=== PATIENT | male | born 1945 | race Caucasian/White ===

== ENCOUNTER 2017-01-03 16:41 | Emergency (ER) | payer MEDICARE ==
--- NOTE | ~2017-01-03 | CR108 ---
[facility] A Service of [facility] & [facility] RADIOLOGY TEXT RESULTS PATIENT: AMRIT SHAH LOCATION: CFTX : 45 UNIT #: [id number] AGE: [address]: Theresa Rizzo APRN SEX: M ORDER DR: [id number] [address] [facility]. [place], [place] [address] [id number] MR#: [id number] Acc #: [id number] NAME: AMRIT SHAH : 1945 SEX: M STUDY DATE/TIME: 01/03/2017 16:47 UNIT: [facility] ROOM: STUDY DESCRIPTION: CR Finger 2 View 2nd Lt Attending Physician: Theresa Rizzo A.P.R.N. Referring Physician: Juan Dueñas M.D. Ordering Physician: hCemo Murphy M.D. Primary Care Physician: Jadyn Haas M.D. MEDICAL IMAGING REPORT This report is preliminary unless electronic signature is present EXAM Left 2nd finger series. DATE OF EXAM 01/03/2017 HISTORY Pain, bleeding, missing tip nail. Table saw cut today. FINDINGS AP, lateral and oblique radiographs of the left 2nd digit are presented. 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 The amputated soft tissue and bony portion of the digit is not included on these radiographs. There is comminuted fracture of the distal phalangeal tuft. Fracture fragments show distraction by up to approximately 2 to 3 mm on the lateral view. There is no intraarticular extension of fracture plane. No subcutaneous radiodense foreign body suggested. Mild generalized soft tissue swelling of the 2nd digit, more pronounced distally. Remaining bony structures show mild generalized interphalangeal joint degenerative changes. No other fractures. No other acute soft tissue abnormalities. Dictated by... Gomez Vargas M.D. THIS IS AN ELECTRONICALLY VERIFIED REPORT Gomez Vargas M.D. at 01/05/2017 8:22 PM PIERO/candy [facility]. [facility] A Service of [facility] & [facility] RADIOLOGY TEXT RESULTS PATIENT: AMRIT SHAH LOCATION: [facility] : 45 UNIT #: [id number] AGE: [address]: Theresa Rizzo APRN SEX: M ORDER DR: TD: 01/03/2017 21:53 JOB #: [id number] MEDICAL IMAGING REPORT COPY
[~2017-01-03 16:41] MED LIST: COLACE PO; COUMADIN PO; COUMADIN5 MG PO; COUMADIN7.5 MG PO; FISH OIL 1,2001 EAC1 PO; FLAGYL PO; GAS RELIEF125 MG PO; LEVAQUIN PO; LISINOPRIL PO; LISINOPRIL10 MG PO; LOVENOX100 MG/ML INJ; NEXIUM PO; OMEPRAZOLE40 MG PO; PAMELOR PO; SERTRALINE HCL50 M1 PO; SIMVASTATIN40 MG PO; ZOCOR PO
[2017-01-03 16:55] LABS: INR 2.8; PARTIAL THROMBOPLASTIN TIME 32.6 SECONDS (23.5-31.3); PROTHROMBIN TIME (PATIENT) 31.1 SECONDS (9.6-11.5)
== END 2017-01-03 17:40 | disposition home or self-care (01) ==
LOC: CFTX 16:41
PROVIDERS: Emergency Medicine
DX: S68.111A Complete traumatic metacarpophalangeal amputation of left index finger, initial encounter (principal); E11.9 Type 2 diabetes mellitus without complications; I10 Essential (primary) hypertension; Z23 Encounter for immunization; Z79.899 Other long term (current) drug therapy; W45.8XXA Other foreign body or object entering through skin, initial encounter; Y93.89 Activity, other specified; Y92.009 Unspecified place in unspecified non-institutional (private) residence as the place of occurrence of the external cause
CPT/HCPCS: 73140; 85610; 85730; 90471; 90715; 99285